=== PATIENT | female | born 2000 | race Caucasian/White ===

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

== ENCOUNTER 2019-03-16 09:16 | Emergency (ER) | payer OTHER ==
[2019-03-16 09:48] VITALS: BP 116/72
[2019-03-16] MEDS ORDERED: Lidocaine 1% MPF ** 5 ML VIAL INJ ONE (10:20)
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
== END 2019-03-16 11:16 | disposition home or self-care (01) ==
LOC: UCCORT 09:16
DX: S01.81XA Laceration without foreign body of other part of head, initial encounter (principal); W22.8XXA Striking against or struck by other objects, initial encounter; Y92.9 Unspecified place or not applicable
CPT/HCPCS: 12011; 99211; G0463